=== PATIENT | female | born 1990 | race Hispanic/Latino ===

== ENCOUNTER 2017-02-22 00:17 | Emergency (ER) | payer SELFPAY ==
[2017-02-22 01:22] LABS: Basophils % (Auto) 0.3 % (0.0-1.8); Hematocrit 40.7 % (30.3-42.9); Hemoglobin 13.4 gm/dl (10.1-14.3); Mean Corpuscular HGB Conc 33 % (30-34); Mean Corpuscular Hemoglobin 31 pg (28-32); Mean Corpuscular Volume 94 fl (79-97); Platelet Count 218 K/mm3 (140-440); Red Blood Count 4.34 M/mm3 (3.65-5.03); Red Cell Distribution Width 13.2 % (13.2-15.2); White Blood Count 15.2 K/mm3 (4.5-11.0)
[2017-02-22 01:41] LABS: Alanine Aminotransferase 7 units/L (7-56); Albumin 4.3 g/dL (3.9-5); Albumin/Globulin Ratio 1.7 %; Alkaline Phosphatase 38 units/L (35-129); Anion Gap 19 mmol/L; BUN/Creatinine Ratio 26.66; Blood Urea Nitrogen 16 mg/dL (7-17); Calcium 9.4 mg/dL (8.4-10.2); Carbon Dioxide 26 mmol/L (22-30); Chloride 102.4 mmol/L (98-107); Glucose 93 mg/dL (65-100); Lipase 29 units/L (13-60); Sodium 143 mmol/L (137-145); Total Protein 6.8 g/dL (6.3-8.2)
[2017-02-22 02:17] LABS: Bilirubin,Urine NEG (Negative); Blood,Urine LG (Negative); Ketones,Urine NEG (Negative); Leukocyte Esterase,Urine MOD (Negative); Nitrite,Urine NEG (Negative); Urobilinogen,Urine < 2.0 mg/dL (<2.0)
[2017-02-22 02:18] LABS: Protein,Urine >500 mg/dL (Negative); RBC,Urine > 182.0 /HPF (0.0-6.0); WBC,Urine > 182.0 /HPF (0.0-6.0)
--- NOTE | 2017-02-22 03:04 | Cat Scan Report ---
FINAL REPORT EXAM: CT ABDOMEN PELVIS WO CON HISTORY: blood in urine, pelvic back pain COMPARISON: None available. TECHNIQUE: Contiguous axial images were obtained. Additional sagittal and coronal reformatted images were obtained. Small amount of enteric contrast administered. FINDINGS: Lung bases are clear. Gallbladder surgically absent. Liver, spleen, pancreas and adrenal glands are grossly unremarkable. No nephrolithiasis or hydronephrosis. Mild haziness of the fat at the margin right kidney. Aorta and IVC are normal in caliber. Wall thickening and fat stranding at the margin the urinary bladder concerning for cystitis. Uterus and ovaries are grossly unremarkable. Trace fluid in the pelvis which may be reactive or physiologic. The appendix is partially gas-filled and normal in caliber. Moderate stool in the colon. No focal inflammatory changes the bowel. Bony pelvis and lumbar spine are grossly intact. IMPRESSION: Findings compatible with cystitis. Abnormal thickening and fat stranding of the urinary bladder. Minimal haziness of the fat surrounding the right kidney concerning for possible pyelonephritis. Correlation with urinalysis suggested. No obstructive uropathy urolithiasis. Trace fluid in the pelvis which may be reactive.
[2017-02-22] MEDS ORDERED: ROCEPHIN/NS 1 GM/50 ML 1 GM/50 ML BAG IV ONE (08:43)
[2017-02-22] MEDS ORDERED: NACL 0.9% 1000 ML 1,000 ML IV ONE (08:44)
--- NOTE | 2017-02-22 10:10 | Emergency Department Report ---
ED Female HPI - General Chief complaint: Urogenital-Female Stated complaint: URINATING BLOOD Time Seen by Provider: 02/22/17 08:59 Source: patient Mode of arrival: Ambulatory Limitations: No Limitations - History of Present Illness Initial comments: This is a 27-year-old female who presents to emergency department with complaint of dysuria and hematuria. Patient states she started noticing burning and she urinated last night. Through the course of the night she started noticing dark or tinged urine and had worsening pain. She has bilateral back pain at this point. States she has had some chills. Is able to tolerate food by mouth. No nausea or vomiting. MD Complaint: dysuria -: Sudden Location: suprapubic Radiation: L flank, R flank Quality: sharp Consistency: constant Improves with: none Worsens with: none Associated Symptoms: denies: vaginal discharge, vaginal bleeding, abdominal pain , nausea/vomiting, fever/chills, headaches, loss of appetite, dysuria, hematuria , rash, shortness of breath, syncope, weakness - Related Data Previous Rx's Medication Instructions Recorded Last Taken Type Cefpodoxime Proxetil 200 mg PO Q12H #14 tablet 02/22/17 Unknown Rx Ibuprofen [Motrin] 600 mg PO Q8H PRN #30 tablet 02/22/17 Unknown Rx Phenazopyridine [Pyridium] 200 mg PO BID #6 tab 02/22/17 Unknown Rx Allergies Allergy/AdvReac Type Severity Reaction Status Date / Time ciprofloxacin [From Cipro] Allergy Rash Verified 09/24/13 13:39 ciprofloxacin HCl Allergy Rash Verified 09/24/13 13:39 [From Cipro] morphine Allergy Hives Verified 09/24/13 13:39 Penicillins Allergy Unknown Verified 09/24/13 13:39 sulfamethoxazole Allergy Swelling Verified 09/24/13 13:39 [From Bactrim] trimethoprim [From Bactrim] Allergy Swelling Verified 09/24/13 13:39 ED Review of Systems ROS: Stated complaint: URINATING BLOOD Other details as noted in HPI Comment: All other systems reviewed and negative Constitutional: denies: chills, fever Eyes: denies: eye pain, eye discharge, vision change ENT: denies: ear pain, throat pain Respiratory: denies: cough, shortness of breath, wheezing Cardiovascular: denies: chest pain, palpitations Endocrine: no symptoms reported Gastrointestinal: denies: abdominal pain, nausea, diarrhea Genitourinary: urgency, dysuria, hematuria. denies: discharge Musculoskeletal: denies: back pain, joint swelling, arthralgia Skin: denies: rash, lesions Neurological: denies: headache, weakness, paresthesias Psychiatric: denies: anxiety, depression Hematological/Lymphatic: denies: easy bleeding, easy bruising ED Past Medical Hx - Past Medical History Previous Medical History?: Yes Hx Hypertension: No Hx Congestive Heart Failure: No Hx Diabetes: No Hx Deep Vein Thrombosis: No Hx Renal Disease: No Hx Sickle Cell Disease: No Hx Seizures: No Hx Asthma: No Hx COPD: No Hx HIV: No Additional medical history: gallstones, hpylori, - Surgical History Past Surgical History?: Yes Hx Cholecystectomy: Yes Additional Surgical History: T&A - Family History Family history: no significant - Social History Smoking Status: Never Smoker Substance Use Type: Alcohol - Medications Home Medications: Home Medications Medication Instructions Recorded Confirmed Last Taken Type Cefpodoxime Proxetil 200 mg PO Q12H #14 tablet 02/22/17 Unknown Rx Ibuprofen [Motrin] 600 mg PO Q8H PRN #30 tablet 02/22/17 Unknown Rx Phenazopyridine [Pyridium] 200 mg PO BID #6 tab 02/22/17 Unknown Rx ED Physical Exam - General Limitations: No Limitations General appearance: alert, in no apparent distress - Head Head exam: Present: atraumatic, normocephalic - Eye Eye exam: Present: normal appearance. Absent: scleral icterus, conjunctival injection - ENT ENT exam: Present: mucous membranes moist - Neck Neck exam: Present: normal inspection - Respiratory Respiratory exam: Present: normal lung sounds bilaterally. Absent: respiratory distress, wheezes - Cardiovascular Cardiovascular Exam: Present: regular rate, normal rhythm. Absent: systolic murmur, diastolic murmur, rubs, gallop - GI/Abdominal GI/Abdominal exam: Present: soft, tenderness (suprapubic), normal bowel sounds. Absent: distended, guarding, rebound - Extremities Exam Extremities exam: Present: normal inspection - Back Exam Back exam: Present: normal inspection - Neurological Exam Neurological exam: Present: alert, oriented X3 - Psychiatric Psychiatric exam: Present: normal affect, normal mood - Skin Skin exam: Present: warm, dry, intact, normal color. Absent: rash ED Course Vital Signs 02/22/17 02/22/17 02/22/17 00:37 04:53 05:23 Temperature 98.3 F 98.6 F Pulse Rate 95 H 86 Respiratory 18 18 Rate Blood Pressure 140/55 107/72 Blood Pressure 113/74 [Left] O2 Sat by Pulse 98 100 Oximetry 02/22/17 02/22/17 02/22/17 08:35 08:45 09:00 Temperature Pulse Rate 81 Respiratory 18 Rate Blood Pressure 140/55 115/73 97/64 Blood Pressure [Left] O2 Sat by Pulse 100 100 100 Oximetry 02/22/17 02/22/17 02/22/17 09:03 09:15 09:30 Temperature 98.9 F Pulse Rate 91 H Respiratory 18 Rate Blood Pressure 97/64 105/72 Blood Pressure [Left] O2 Sat by Pulse 100 100 Oximetry ED Medical Decision Making - Lab Data Result diagrams: 02/22/17 00:58 02/22/17 00:58 Laboratory Results - last 24 hr 02/22/17 02/22/17 02/22/17 00:58 00:58 00:58 WBC 15.2 H RBC 4.34 Hgb 13.4 Hct 40.7 MCV 94 MCH 31 MCHC 33 RDW 13.2 Plt Count 218 Lymph % (Auto) 21.9 Drew % (Auto) 7.6 H Eos % (Auto) 1.0 Baso % (Auto) 0.3 Lymph # 3.3 Drew # 1.2 H Eos # 0.1 Baso # 0.0 Seg Neutrophils % 69.2 Seg Neutrophils # 10.6 H Sodium 143 Potassium 4.0 Chloride 102.4 Carbon Dioxide 26 Anion Gap 19 BUN 16 Creatinine 0.6 L Estimated GFR > 60 BUN/Creatinine Ratio 26.66 Glucose 93 Calcium 9.4 Total Bilirubin 0.50 AST 13 ALT 7 Alkaline Phosphatase 38 Total Protein 6.8 Albumin 4.3 Albumin/Globulin Ratio 1.7 Lipase 29 HCG, Qual Negative Urine Color Urine Turbidity Urine pH Ur Specific [place] Urine Protein Urine Glucose (UA) Urine Ketones Urine Blood Urine Nitrite Urine Bilirubin Urine Urobilinogen Ur Leukocyte Esterase Urine WBC (Auto) Urine RBC (Auto) U Epithel Cells (Auto) 02/22/17 Unknown WBC RBC Hgb Hct MCV MCH MCHC RDW Plt Count Lymph % (Auto) Drew % (Auto) Eos % (Auto) Baso % (Auto) Lymph # Drew # Eos # Baso # Seg Neutrophils % Seg Neutrophils # Sodium Potassium Chloride Carbon Dioxide Anion Gap BUN Creatinine Estimated GFR BUN/Creatinine Ratio Glucose Calcium Total Bilirubin AST ALT Alkaline Phosphatase Total Protein Albumin Albumin/Globulin Ratio Lipase HCG, Qual Urine Color Red Urine Turbidity Turbid Urine pH 8.0 H Ur Specific [place] 1.023 Urine Protein >500 Urine Glucose (UA) Neg Urine Ketones Neg Urine Blood Lg Urine Nitrite Neg Urine Bilirubin Neg Urine Urobilinogen < 2.0 Ur Leukocyte Esterase Mod Urine WBC (Auto) > 182.0 H Urine RBC (Auto) > 182.0 U Epithel Cells (Auto) 5.0 - Medical Decision Making Patient is a 27-year-old female with hemorrhagic cystitis. There is some questionable findings of pyelonephritis on her CAT scan. Given these findings clinically treat the patient with oral antibiotics for 10 days. She has allergies to Bactrim and Cipro so plan to put her on Vantin. Her penicillin allergy is likely childhood in nature. She appears well. Tolerating by mouth. Portions of this chart were dictated with dictation software. There may be dictation errors contained within this note. Critical care attestation.: If time is entered above; I have spent that time in minutes in the direct care of this critically ill patient, excluding procedure time. ED Disposition Clinical Impression: Hemorrhagic cystitis, Pyelonephritis Disposition: TO HOME OR SELFCARE Is pt being admited?: No Condition: Stable Instructions: Acute Pyelonephritis (ED) Prescriptions: Cefpodoxime Proxetil 200 mg PO Q12H #14 tablet Ibuprofen [Motrin] 600 mg PO Q8H PRN #30 tablet PRN Reason: Pain Phenazopyridine [Pyridium] 200 mg PO BID #6 tab Referrals: PRIMARY CARE, [Primary Care Provider] - 3-5 Days
[2017-02-22 10:13] VITALS: BP 103/68
== END 2017-02-22 10:29 | disposition home or self-care (01) ==
LOC: ED 00:17
DX: N30.80 Other cystitis without hematuria (principal); N12 Tubulo-interstitial nephritis, not specified as acute or chronic; Z90.49 Acquired absence of other specified parts of digestive tract; Z88.0 Allergy status to penicillin; Z88.1 Allergy status to other antibiotic agents
CPT/HCPCS: 36415; 74176; 80053; 81001; 83690; 84703; 85025; 96365; 99284; J0696; J7030